=== PATIENT | female | born 1965 | race Caucasian/White ===

== ENCOUNTER 2017-06-13 16:04 | Observation (INO) | payer BC, OTHER ==
[2017-06-13] MEDS ORDERED: Sodium Chloride 0.9% 2.5 ML Syringe FLUSH PRN (16:10)
[2017-06-13] MEDS ORDERED: Sodium Chloride 0.9% 10 ML Syringe FLUSH PRN (16:10)
[2017-06-13] MEDS ORDERED: Aspirin 81 MG Tab.Chew PO ONE (16:10)
[2017-06-13] MEDS ORDERED: Nitroglycerin 0.4 MG Tab.SL SL PRN (16:10)
[2017-06-13] MEDS ORDERED: Ketorolac 30 MG/ML SDV IVPUSH ONE (16:23)
[2017-06-13] MEDS ORDERED: Sodium Chloride 0.9% 1,000 ML IV ONE ×2 (16:23→17:25)
--- NOTE | 2017-06-13 16:35 | EDM.PDOC ---
ED HPI GENERAL MEDICAL PROBLEM - General Chief Complaint: Chest Pain Stated Complaint: CHEST PAINS Time Seen by Provider: 06/13/17 16:09 Source of Information: Reports: Patient History Limitations: Reports: No Limitations - History of Present Illness INITIAL COMMENTS - FREE TEXT/NARRATIVE: History of present illness: []Patient was washing dishes around 3:15 when she got severe left-sided pain underneath her axilla radiating to her breast sharp and continuous. Patient states she got sweaty, dizzy and short of breath when it occurred. Review of systems: As per history of present illness and below otherwise all systems reviewed and negative. Past medical history: As per history of present illness and as reviewed below otherwise noncontributory. Surgical history: As per history of present illness and as reviewed below otherwise noncontributory. Social history: No reported history of drug or alcohol abuse. Family history: As per history of present illness and as reviewed below otherwise noncontributory. Physical exam: General: Well developed, well nourished in NAD HEENT: Atraumatic, normocephalic, pupils reactive, negative for conjunctival pallor or scleral icterus, mucous membranes moist, throat clear, neck supple, nontender, trachea midline. Lungs: Clear to auscultation, breath sounds equal bilaterally, chest nontender. Heart: S1S2, regular, negative for clicks, rubs, or JVD. Abdomen: Soft, nondistended, nontender. Negative for masses or hepatosplenomegaly. Negative for costovertebral tenderness. Pelvis: Stable nontender. Genitourinary: Deferred. Rectal: Deferred. Extremities: Atraumatic, negative for cords or calf pain. Neurovascular unremarkable. Neuro: Awake, alert, oriented. Cranial nerves II through XII unremarkable. Cerebellum unremarkable. Motor and sensory unremarkable throughout. Exam nonfocal. Diagnostics: []EKG showing no acute ischemic changes, is x-ray shows mild atelectasis, initial troponin is negative d-dimer was positive and a CT chest was negative for PE Therapeutics: []Aspirin and nitroglycerin pain meds were given Impression: []Chest pain likely musculoskeletal but will admit to rule out ND Plan: []Admit for observation for repeat troponins Definitive disposition and diagnosis as appropriate pending reevaluation and review of above. Left Chest Pain Score (Numeric/FACES): 9 - Related Data Allergies Allergy/AdvReac Type Severity Reaction Status Date / Time latex Allergy Rash Verified 06/13/17 23:28 nitrofurantoin Allergy Rash Verified 06/13/17 23:28 [From Macrodantin] Home Meds: Home Meds DULoxetine [Cymbalta] 60 mg PO BID 06/13/17 [History] Levothyroxine 75 mcg PO DAILY 06/13/17 [History] Omeprazole 20 mg PO DAILY 06/13/17 [History] traMADol [Ultram] 50 mg PO BID 06/13/17 [History] ED ROS GENERAL - Review of Systems Review Of Systems: See Below (See history of present illness) ED EXAM, GENERAL - Physical Exam Exam: See Below (See history of present illness) Course - Vital Signs Last Recorded V/S: Last Vital Signs Temp 36.2 C 06/14/17 08:00 Pulse 65 06/14/17 08:00 Resp 16 06/14/17 08:00 BP 81/46 L 06/14/17 08:00 Pulse Ox 97 06/14/17 08:00 - Orders/Labs/Meds Orders: Active Orders 24 hr Category Date Time Status Ang Chest [CT] Stat Exams 06/13/17 17:06 Taken Chest 1V Frontal [CR] Stat Exams 06/13/17 16:10 Taken Nitroglycerin [Nitrostat] Med 06/13/17 16:10 Active 0.4 mg SL Q5M PRN Sodium Chloride 0.9% [Saline Flush] Med 06/13/17 16:10 Active 10 ml FLUSH ASDIRECTED PRN Sodium Chloride 0.9% [Saline Flush] Med 06/13/17 16:10 Active 2.5 ml FLUSH ASDIRECTED PRN Saline Lock Insert [OM.PC] Stat Oth 06/13/17 16:09 Ordered Medication Orders Acetaminophen (Tylenol) 650 mg PO Q4H PRN PRN Reason: Pain (Mild 1-3)/fever Aspirin (Aspirin) 81 mg PO DAILY [facility] Last Admin: 06/14/17 08:11 Dose: 81 mg Bisacodyl (Dulcolax) 5 mg PO DAILY PRN PRN Reason: Constipation Duloxetine HCl (Cymbalta) 60 mg PO BID [facility] Last Admin: 06/14/17 08:10 Dose: 60 mg Admin: 06/13/17 20:55 Dose: 60 mg Levofloxacin (Levaquin) 500 mg PO Q24H [facility] Last Admin: 06/13/17 20:55 Dose: 500 mg Levothyroxine Sodium (Levothyroxine) 75 mcg PO DAILY@0700 [facility] Last Admin: 06/14/17 06:19 Dose: 75 mcg Morphine Sulfate (Morphine) 4 mg IVPUSH Q2H PRN PRN Reason: Pain Last Admin: 06/14/17 01:09 Dose: 4 mg Admin: 06/13/17 20:51 Dose: 4 mg Nitroglycerin (Nitrostat) 0.4 mg SL Q5M PRN PRN Reason: Chest Pain Omeprazole (Omeprazole) 20 mg PO ACBREAKFAST [facility] Ondansetron HCl (Zofran Odt) 4 mg PO Q4H PRN PRN Reason: nausea, able to take PO Last Admin: 06/13/17 20:56 Dose: 4 mg Sodium Chloride (Saline Flush) 10 ml FLUSH ASDIRECTED PRN PRN Reason: Keep Vein Open Last Admin: 06/13/17 16:20 Dose: 10 ml Sodium Chloride (Saline Flush) 2.5 ml FLUSH ASDIRECTED PRN PRN Reason: Keep Vein Open Last Admin: 06/13/17 16:20 Dose: 2.5 ml Temazepam (Restoril) 15 mg PO BEDTIME [facility] Last Admin: 06/13/17 20:56 Dose: Admin: 06/13/17 20:55 Dose: 15 mg Tramadol HCl (Ultram) 50 mg PO BID [facility] Last Admin: 06/14/17 08:11 Dose: 50 mg Admin: 06/13/17 20:55 Dose: 50 mg Trazodone HCl (Trazodone) 50 mg PO Q24H [facility] Last Admin: 06/13/17 20:55 Dose: 50 mg Labs: Laboratory Tests 06/13/17 06/13/17 06/13/17 Range/Units 16:07 16:12 16:12 WBC 14.00 H (4.0-11.0) K/uL RBC 5.24 (4.30-5.90) M/uL Hgb 16.2 H (12.0-16.0) g/dL Hct 47.9 H (36.0-46.0) % MCV 91.4 (80.0-98.0) fL MCH 30.9 (27.0-32.0) pg MCHC 33.8 (31.0-37.0) g/dL RDW Std Deviation 48.2 (28.0-62.0) fl RDW Coeff of Isaías 15 (11.0-15.0) % Plt Count 274 (150-400) K/uL MPV 11.10 (7.40-12.00) fL Add Manual Diff YES Neutrophils % (Manual) 52 (48.0-80.0) % Band Neutrophils % 7 % Lymphocytes % (Manual) 32 (16.0-40.0) % Monocytes % (Manual) 3 (0.0-15.0) % Eosinophils % (Manual) 6 (0.0-7.0) % Nucleated RBC % 0.0 /100WBC Absolute Seg Neuts 7.3 H (1.4-5.7) Band Neutrophils # 1.0 Lymphocytes # (Manual) 4.5 H (0.6-2.4) Monocytes # (Manual) 0.4 (0.0-0.8) Eosinophils # (Manual) 0.8 H (0.0-0.7) Nucleated RBCs # 0 K/uL D-Dimer, Quantitative 0.55 H (0.0-0.52) mg/LFEU Sodium 142 (136-146) mmol/L Potassium 3.7 (3.5-5.1) mmol/L Chloride 104 (98-110) mmol/L Carbon Dioxide 28 (21-31) mmol/L BUN 10 (6.0-23.0) mg/dL Creatinine 0.8 (0.6-1.5) mg/dL Est Cr Clr Drug Dosing 78.76 mL/min Estimated GFR (MDRD) > 60.0 ml/min Glucose 105 (60-110) mg/dL Calcium 9.8 (8.8-10.8) mg/dL Total Bilirubin 0.3 (0.1-1.5) mg/dL AST 15 (5-40) IU/L ALT 12 (8-54) IU/L Alkaline Phosphatase 117 (40-150) Troponin I < 0.10 (0.0-0.29) NG/ML Total Protein 8.0 (6.0-8.0) g/dL Albumin 4.1 (3.5-5.0) g/dL Globulin 3.9 H (2.0-3.5) g/dL Albumin/Globulin Ratio 1.1 L (1.3-2.8) Meds: Medications Generic Name Dose Route Start Last Admin Trade Name Freq PRN Reason Stop Dose Admin Acetaminophen 650 mg 06/13/17 20:25 Tylenol PO Q4H PRN Pain (Mild 1-3)/fever Aspirin 81 mg 06/14/17 09:00 06/14/17 08:11 Aspirin PO 81 mg DAILY [place] Administration Bisacodyl 5 mg 06/13/17 20:25 Dulcolax PO DAILY PRN Constipation Duloxetine HCl 60 mg 06/13/17 21:00 06/14/17 08:10 Cymbalta PO 60 mg BID [facility] Administration Levofloxacin 500 mg 06/13/17 20:00 06/13/17 20:55 Levaquin PO 500 mg Q24H [facility] Administration Levothyroxine Sodium 75 mcg 06/14/17 07:00 06/14/17 06:19 Levothyroxine PO 75 mcg DAILY@0700 [facility] Administration Morphine Sulfate 4 mg 06/13/17 20:14 06/14/17 01:09 Morphine IVPUSH 4 mg Q2H PRN Administration Pain Nitroglycerin 0.4 mg 06/13/17 16:10 Nitrostat SL Q5M PRN Chest Pain Omeprazole 20 mg 06/15/17 07:30 Omeprazole PO ACBREAKFAST [facility] Ondansetron HCl 4 mg 06/13/17 20:25 06/13/17 20:56 Zofran Odt PO 4 mg Q4H PRN Administration nausea, able to take PO Sodium Chloride 10 ml 06/13/17 16:10 06/13/17 16:20 Saline Flush FLUSH 10 ml ASDIRECTED PRN Administration Keep Vein Open Sodium Chloride 2.5 ml 06/13/17 16:10 06/13/17 16:20 Saline Flush FLUSH 2.5 ml ASDIRECTED PRN Administration Keep Vein Open Temazepam 15 mg 06/13/17 20:15 06/13/17 20:56 Restoril PO Not Given BEDTIME [facility] Tramadol HCl 50 mg 06/13/17 21:00 06/14/17 08:11 Ultram PO 50 mg BID [facility] Administration Trazodone HCl 50 mg 06/13/17 21:00 06/13/17 20:55 Trazodone PO 50 mg Q24H [place] Administration Discontinued Medications Generic Name Dose Route Start Last Admin Trade Name Louie TA Reason Stop Dose Admin Aspirin 324 mg 06/13/17 16:10 06/13/17 16:19 Aspirin PO 06/13/17 16:11 324 mg ONETIME ONE Administration Sodium Chloride 1,000 mls @ 999 mls/hr 06/13/17 16:23 06/13/17 16:24 Normal Saline IV 06/13/17 17:23 999 mls/hr .Bolus ONE Administration Sodium Chloride 1,000 mls @ 999 mls/hr 06/13/17 17:25 06/13/17 17:27 Normal Saline IV 06/13/17 18:25 999 mls/hr .Bolus ONE Administration Influenza Virus Vaccine 60 mcg 06/13/17 23:45 Fluarix Quad [id number] IM 06/13/17 23:46 .ONCE ONE Iopamidol 50 ml 06/13/17 18:12 06/13/17 18:12 Isovue Multipack-370 (76%) IVPUSH 06/13/17 18:13 50 ml ONETIME STA Administration Ketorolac Tromethamine 30 mg 06/13/17 16:23 06/13/17 16:26 Toradol IVPUSH 06/13/17 16:24 30 mg ONETIME ONE Administration Morphine Sulfate 2 mg 06/13/17 16:51 06/13/17 16:59 Morphine IVPUSH 06/13/17 16:52 2 mg ONETIME ONE Administration Nitroglycerin 0.4 mg 06/13/17 17:24 06/13/17 17:29 Nitrostat SL 06/13/17 17:25 0.4 mg ONETIME ONE Administration Omeprazole 20 mg 06/14/17 09:00 06/14/17 08:11 Omeprazole PO 20 mg DAILY [place] Administration Departure - Departure Time of Disposition: 19:45 Disposition: Admitted As Inpatient 68 Condition: Good Clinical Impression: Chest pain Qualifiers: Chest pain type: unspecified Qualified Code(s): R07.9 - Chest pain, unspecified - My Orders Last 24 Hours: My Active Orders 06/13/17 16:09 Saline Lock Insert [OM.PC] Stat 06/13/17 16:10 Chest 1V Frontal [CR] Stat Nitroglycerin [Nitrostat] 0.4 mg SL Q5M PRN Sodium Chloride 0.9% [Saline Flush] 10 ml FLUSH ASDIRECTED PRN Sodium Chloride 0.9% [Saline Flush] 2.5 ml FLUSH ASDIRECTED PRN 06/13/17 17:06 Ang Chest [CT] Stat - Assessment/Plan Last 24 Hours: My Active Orders 06/13/17 16:09 Saline Lock Insert [OM.PC] Stat 06/13/17 16:10 Chest 1V Frontal [CR] Stat Nitroglycerin [Nitrostat] 0.4 mg SL Q5M PRN Sodium Chloride 0.9% [Saline Flush] 10 ml FLUSH ASDIRECTED PRN Sodium Chloride 0.9% [Saline Flush] 2.5 ml FLUSH ASDIRECTED PRN 06/13/17 17:06 Ang Chest [CT] Stat
[2017-06-13 16:40] LABS: CHLORIDE,CL 104 mmol/L (98-110); SODIUM,NA 142 mmol/L (136-146)
[2017-06-13] MEDS ORDERED: Morphine 2 MG/ML Syringe IVPUSH ONE (16:51)
[2017-06-13] MEDS ORDERED: Nitroglycerin 0.4 MG Tab.SL SL ONE (17:24)
[2017-06-13] MEDS ORDERED: Iopamidol 755 MG/ML 500 ML Multipack Bottle IVPUSH STA (18:12)
[2017-06-13] MEDS ORDERED: Levofloxacin 500 MG Tab PO SCH (20:00)
--- NOTE | 2017-06-13 20:21 | PCM.HP ---
H&P History of Present Illness - General Date of Service: 06/13/17 Admit Problem/Dx: Admission Diagnosis/Problem Admission Diagnosis/Problem Chest pain Source of Information: Patient, Provider, RN - History of Present Illness Initial Comments - Free Text/Narative: She presented to the ED today with recent sudden onset left chest pain. She has a history of fibromyalgia. She has had a slight cough. no fever no bleeding she has only had four hours of sleep over the past several days. Her pain is improved compared to when she arrived in the ED. Left Chest Pain Score (Numeric/FACES): 6 - Related Data Allergies/Adverse Reactions: Allergies Allergy/AdvReac Type Severity Reaction Status Date / Time nitrofurantoin Allergy Rash Verified 06/13/17 16:18 [From Macrodantin] Home Medications: Home Meds DULoxetine [Cymbalta] 60 mg PO BID 06/13/17 [History] Levothyroxine 75 mcg PO DAILY 06/13/17 [History] Omeprazole 20 mg PO DAILY 06/13/17 [History] traMADol [Ultram] 50 mg PO BID 06/13/17 [History] Past Medical History Cardiovascular History: Denies: Afib, Aneurysm, Angina, Bypass, CAD, Cardiomyopathy, Heart Failure, High Cholesterol, Hypertension, HI, Pacemaker Respiratory History: Denies: COPD Gastrointestinal History: Denies: Cirrhosis Genitourinary History: Denies: Chronic Renal Insuffiency Musculoskeletal History: Reports: Fibromyalgia Neurological History: Denies: Alzheimers Disease, CVA, MS, Parkinson's, Seizure Endocrine/Metabolic History: Reports: Hypothyroidism. Denies: Diabetes, Type II Immunologic History: Denies: HIV, SLE, Solid Organ Transplant Oncologic (Cancer) History: Reports: None - Past Surgical History Female Surgical History: Reports: Hysterectomy Other Surgical History Comment: gastric sleeve about three years ago. she has undergone cervical spine fusion in the past. Social & Family History - Family History Family Medical History: Noncontributory - Tobacco Use Smoking Status *Q: Current Every Day Smoker Years of Tobacco use: 30 Packs/Tins Daily: 1 - Caffeine Use Caffeine Use: Reports: Coffee - Alcohol Use Alcohol Use Comment: she occasionally has a few drinks on the weekend. She does not drink alcohol daily. - Recreational Drug Use Recreational Drug Use: No H&P Review of Systems - Review of Systems: Review Of Systems: See Below General: Denies: Fever, Chills HEENT: Denies: Dysphasia Pulmonary: Reports: Cough. Denies: Shortness of Breath, Wheezing Cardiovascular: Reports: Chest Pain. Denies: Palpitations Gastrointestinal: Denies: Black Stool, Bloody Stool, Distension, Melena, Vomiting Genitourinary: Denies: Dysuria, Frequency, Pain Musculoskeletal: Reports: Other (chronic fibromyalgia pain) Skin: Denies: Cyanosis Neurological: Denies: Seizure Exam - Exam Exam: See Below - Vital Signs Vital Signs: Last Vital Signs Temp 97.5 F 06/13/17 19:32 Pulse 83 06/13/17 19:32 Resp 18 06/13/17 19:32 BP 107/63 06/13/17 19:32 Pulse Ox 100 06/13/17 19:32 Weight: 104.1 kg - Exam General: Alert, Oriented, Cooperative. No: Mild Distress HEENT: Conjunctiva Clear Neck: Supple Lungs: Clear to Auscultation, Normal Respiratory Effort Cardiovascular: Regular Rate, Regular Rhythm GI/Abdominal Exam: Soft, Non-Tender (Female) Exam: Deferred Rectal (Female) Exam: Deferred Extremities: No: Pedal Edema Neurological: Cranial Nerves Intact Psychiatric: Alert, Normal Affect (no ankle edema; breasts examined supine; no masses or tenderness; moderate anterior chest wall tenderness) - Patient Data Result Diagrams: 06/13/17 16:12 06/13/17 16:12 Gideon Results Last 24 hrs: EKG: NSR: no acute ST segment changes. *Q Meaningful Use (ADM) - VTE *Q VTE Criteria *Q: - Stroke *Q Stroke Criteria *Q: - AMI *Q AMI Criteria *Q: - Problem List (1) Chest wall pain SNOMED Code(s): 192404914 ICD Code: R07.89 - OTHER CHEST PAIN Status: Acute Current Visit: Yes (2) Insomnia SNOMED Code(s): 506692942 ICD Code: G47.00 - INSOMNIA, UNSPECIFIED Status: Acute Current Visit: Yes (3) Fibromyalgia SNOMED Code(s): 102923192 ICD Code: M79.7 - FIBROMYALGIA Status: Acute Current Visit: Yes Problem List Initiated/Reviewed/Updated: Yes Orders Last 24hrs: Active Orders 24 hr Category Date Time Status Aspirin Med 06/14/17 09:00 Ordered 81 mg PO DAILY DULoxetine [Cymbalta] Med 06/13/17 21:00 Ordered 60 mg PO BID Levofloxacin [Levaquin] Med 06/13/17 20:15 Ordered 500 mg PO Q24H Levothyroxine Med 06/14/17 09:00 Ordered 75 mcg PO DAILY Morphine Med 06/13/17 20:14 Ordered 4 mg IVPUSH Q2H PRN Omeprazole Med 06/14/17 09:00 Ordered 20 mg PO DAILY Temazepam [Restoril] Med 06/13/17 20:15 Ordered 15 mg PO BEDTIME traMADol [Ultram] Med 06/13/17 21:00 Ordered 50 mg PO BID traZODone Med 06/13/17 21:00 Ordered 50 mg PO Q24H Medication Orders Aspirin (Aspirin) 81 mg PO DAILY [place] Duloxetine HCl (Cymbalta) 60 mg PO BID [facility] Levothyroxine Sodium (Levothyroxine) 75 mcg PO DAILY [place] Morphine Sulfate (Morphine) 4 mg IVPUSH Q2H PRN PRN Reason: Pain Nitroglycerin (Nitrostat) 0.4 mg SL Q5M PRN PRN Reason: Chest Pain Omeprazole (Omeprazole) 20 mg PO DAILY [facility] Sodium Chloride (Saline Flush) 10 ml FLUSH ASDIRECTED PRN PRN Reason: Keep Vein Open Last Admin: 06/13/17 16:20 Dose: 10 ml Sodium Chloride (Saline Flush) 2.5 ml FLUSH ASDIRECTED PRN PRN Reason: Keep Vein Open Last Admin: 06/13/17 16:20 Dose: 2.5 ml Temazepam (Restoril) 15 mg PO BEDTIME [place] Tramadol HCl (Ultram) 50 mg PO BID [place] Trazodone HCl (Trazodone) 50 mg PO Q24H [place] Assessment/Plan Comment:: Will add trazodone and restoril serial troponins Likely discharge in am. Bernardino Melara MD
[2017-06-13] MEDS ORDERED: Bisacodyl 5 MG Tab PO PRN (20:25)
[2017-06-13] MEDS ORDERED: Acetaminophen 325 MG Tab PO PRN (20:25)
[2017-06-13] MEDS ORDERED: Ondansetron 4 MG Tab.DIS PO PRN (20:25)
[2017-06-13] MEDS: Morphine 4 MG/ML Syringe IVPUSH PRN (20:51)
[2017-06-13] MEDS: Temazepam 15 MG Cap PO SCH ×2 (20:55→20:56)
[2017-06-13] MEDS: traMADol 50 MG Tab PO SCH (20:55)
[2017-06-13] MEDS: DULoxetine 60 MG Cap PO SCH (20:55)
[2017-06-13] MEDS ORDERED: traZODone 50 MG Tab PO SCH (21:00)
[2017-06-13] MEDS ORDERED: FLU Vacc QS 2017-18 (36mos UP)/PF 60 MCG/0.5 ML Syringe IM ONE (23:45)
[2017-06-14] MEDS: Morphine 4 MG/ML Syringe IVPUSH PRN (01:09)
[2017-06-14] MEDS ORDERED: Levothyroxine 75 MCG Tab PO SCH (07:00)
[2017-06-14] MEDS: DULoxetine 60 MG Cap PO SCH (08:10)
[2017-06-14] MEDS: traMADol 50 MG Tab PO SCH (08:11)
[2017-06-14] MEDS ORDERED: Omeprazole 20 MG Cap.CR PO SCH (09:00)
[2017-06-14] MEDS ORDERED: Aspirin 81 MG Tab.Chew PO SCH (09:00)
--- NOTE | 2017-06-14 10:52 | PCM.DCSUM1 ---
Discharge Summary - Hospital Course Brief History: This 52 year old female with pmh of fibromyalgia presented to the ED with complaints of L sided chest pain. she reported was washing dishes around 3:15 am when she got severe left-sided pain underneath her axilla radiating to her breast sharp and continuous. Patient states she got sweaty, dizzy and short of breath when it occurred. This was unusual to her typical chronic pain and felt she should be evaluated. She reports she does smoke 1 ppd for the past 30 years, drinks coffee and at least 1 energy drink daily and uses alcohol socially, but not on a daily basis. Initial troponin in ED negative. EKG NSR with no acute ST segment changes. She was admitted for chest pain ACS rule out. - Discharge Data Discharge Date: 06/14/17 Discharge Disposition: Home, Self-Care 01 Condition: Good - Discharge Diagnosis/Problem(s) (1) Chest pain SNOMED Code(s): 63176876 ICD Code: R07.9 - CHEST PAIN, UNSPECIFIED Status: Acute Qualifiers: Chest pain type: unspecified Qualified Code(s): R07.9 - Chest pain, unspecified - Patient Instructions Diet: Heart Healthy Diet Activity: As Tolerated, No Strenuous Activities Driving: May Drive Today Showering/Bathing: May Shower Notify Provider of: Fever, Increased Pain, Swelling and Redness, Drainage, Nausea and/or Vomiting - Discharge Plan Home Medications: Home Meds DULoxetine [Cymbalta] 60 mg PO BID 06/13/17 [History] Levothyroxine 75 mcg PO DAILY 06/13/17 [History] Omeprazole 20 mg PO DAILY 06/13/17 [History] traMADol [Ultram] 50 mg PO BID 06/13/17 [History] Aspirin 81 mg PO DAILY tab.chew 06/14/17 [Rx] Patient Handouts: Exercise Stress Echocardiogram, [id number], Nonspecific Chest Pain, [id number] Referrals: Anna Cohn MD [Physician] - 06/26/17 1:00 pm - Discharge Summary/Plan Comment DC Time >30 min.: No Discharge Summary/Plan Comment: Discharge Diagnoses: Chest pain- ACS ruled out likely musculoskeletal Fibromyalgia Alyse was admitted and ACS ruled out. All troponins returned negative. She continues to have some tenderness to L sided chest, but this hurts to palpations of chest and reproduces pain. Telemetry remained normal overnight as well. Lipid panel revelaed HDL 29, LDL 167, A1c 5.6 She was encouraged to continue with healthy lifestyle choices, including more plant based diet and to quit smoking. She was also encouraged to stop energy drink intake as well. She will be sent home today with no changes to medications. She will be set up with outpatient stress test to further evaluate her heart. She will also be set up with PCP to establish care here in [place]. She is to return to ED or clinic if concerns should arise. - General Info Date of Service: 06/14/17 Admission Dx/Problem (Free Text: Admission Diagnosis/Problem Admission Diagnosis/Problem Chest pain Subjective Update: Feeling ok this am, still having some tenderness to L chest, but better than yesterday. No dizziness or headache. No SOB or palpitations. - Review of Systems General: Reports: No Symptoms. Denies: Weakness, Fatigue HEENT: Reports: No Symptoms. Denies: Headaches, Sore Throat Pulmonary: Reports: No Symptoms. Denies: Shortness of Breath, Cough, Sputum Cardiovascular: Reports: No Symptoms. Denies: Chest Pain, Edema Gastrointestinal: Reports: No Symptoms. Denies: Abdominal Pain, Nausea, Vomiting Neurological: Reports: No Symptoms Psychiatric: Reports: No Symptoms - Patient Data Vitals - Most Recent: Last Vital Signs Temp 97.2 F 06/14/17 08:00 Pulse 65 06/14/17 08:00 Resp 16 06/14/17 08:00 BP 81/46 L 06/14/17 08:00 Pulse Ox 97 06/14/17 08:00 Weight - Most Recent: 104.525 kg I&O - Last 24 hours: Intake & Output 06/13/17 06/14/17 06/14/17 22:59 06:59 14:59 Intake Total 850 Output Total 550 Balance 300 Lab Results - Last 24 hrs: Laboratory Results - last 24 hr 06/13/17 06/14/17 06/14/17 Range/Units 22:53 04:48 04:48 WBC (4.0-11.0) K/uL RBC (4.30-5.90) M/uL Hgb (12.0-16.0) g/dL Hct (36.0-46.0) % MCV (80.0-98.0) fL MCH (27.0-32.0) pg MCHC (31.0-37.0) g/dL RDW Std Deviation (28.0-62.0) fl RDW Coeff of Isaías (11.0-15.0) % Plt Count (150-400) K/uL MPV (7.40-12.00) fL Add Manual Diff Neutrophils % (Manual) (48.0-80.0) % Band Neutrophils % % Lymphocytes % (Manual) (16.0-40.0) % Monocytes % (Manual) (0.0-15.0) % Eosinophils % (Manual) (0.0-7.0) % Nucleated RBC % /100WBC Absolute Seg Neuts (1.4-5.7) Band Neutrophils # Lymphocytes # (Manual) (0.6-2.4) Monocytes # (Manual) (0.0-0.8) Eosinophils # (Manual) (0.0-0.7) Nucleated RBCs # K/uL Hemoglobin A1c 5.6 (0.0-6.0) % Magnesium (1.5-2.3) mEq/L Troponin I < 0.10 (0.0-0.29) NG/ML Triglycerides 147 (10-190) mg/dL Cholesterol 222 (131-240) mg/dL LDL Cholesterol, Calc 163 (60-180) mg/dL VLDL Cholesterol 29 (5-55) mg/dL HDL Cholesterol 30 L (40-80) mg/dL Cholesterol/HDL Ratio 7.4 H (3.3-6.0) 06/14/17 06/14/17 06/14/17 Range/Units 04:58 04:58 04:58 WBC 10.96 (4.0-11.0) K/uL RBC 4.23 L (4.30-5.90) M/uL Hgb 12.7 (12.0-16.0) g/dL Hct 39.7 (36.0-46.0) % MCV 93.9 (80.0-98.0) fL MCH 30.0 (27.0-32.0) pg MCHC 32.0 (31.0-37.0) g/dL RDW Std Deviation 49.7 (28.0-62.0) fl RDW Coeff of Isaías 15 (11.0-15.0) % Plt Count 228 (150-400) K/uL MPV 11.20 (7.40-12.00) fL Add Manual Diff YES Neutrophils % (Manual) 58 (48.0-80.0) % Band Neutrophils % 1 % Lymphocytes % (Manual) 34 (16.0-40.0) % Monocytes % (Manual) 4 (0.0-15.0) % Eosinophils % (Manual) 3 (0.0-7.0) % Nucleated RBC % 0.0 /100WBC Absolute Seg Neuts 6.4 H (1.4-5.7) Band Neutrophils # 0.1 Lymphocytes # (Manual) 3.7 H (0.6-2.4) Monocytes # (Manual) 0.4 (0.0-0.8) Eosinophils # (Manual) 0.3 (0.0-0.7) Nucleated RBCs # 0 K/uL Hemoglobin A1c (0.0-6.0) % Magnesium 1.6 (1.5-2.3) mEq/L Troponin I < 0.10 (0.0-0.29) NG/ML Triglycerides (10-190) mg/dL Cholesterol (131-240) mg/dL LDL Cholesterol, Calc (60-180) mg/dL VLDL Cholesterol (5-55) mg/dL HDL Cholesterol (40-80) mg/dL Cholesterol/HDL Ratio (3.3-6.0) Med Orders - Current: Current Medications Acetaminophen (Tylenol) 650 mg PO Q4H PRN PRN Reason: Pain (Mild 1-3)/fever Aspirin (Aspirin) 81 mg PO DAILY [facility] Last Admin: 06/14/17 08:11 Dose: 81 mg Bisacodyl (Dulcolax) 5 mg PO DAILY PRN PRN Reason: Constipation Duloxetine HCl (Cymbalta) 60 mg PO BID [facility] Last Admin: 06/14/17 08:10 Dose: 60 mg Levofloxacin (Levaquin) 500 mg PO Q24H [facility] Last Admin: 06/13/17 20:55 Dose: 500 mg Levothyroxine Sodium (Levothyroxine) 75 mcg PO DAILY@0700 [facility] Last Admin: 06/14/17 06:19 Dose: 75 mcg Morphine Sulfate (Morphine) 4 mg IVPUSH Q2H PRN PRN Reason: Pain Last Admin: 06/14/17 01:09 Dose: 4 mg Nitroglycerin (Nitrostat) 0.4 mg SL Q5M PRN PRN Reason: Chest Pain Omeprazole (Omeprazole) 20 mg PO ACBREAKFAST [facility] Ondansetron HCl (Zofran Odt) 4 mg PO Q4H PRN PRN Reason: nausea, able to take PO Last Admin: 06/13/17 20:56 Dose: 4 mg Sodium Chloride (Saline Flush) 10 ml FLUSH ASDIRECTED PRN PRN Reason: Keep Vein Open Last Admin: 06/13/17 16:20 Dose: 10 ml Sodium Chloride (Saline Flush) 2.5 ml FLUSH ASDIRECTED PRN PRN Reason: Keep Vein Open Last Admin: 06/13/17 16:20 Dose: 2.5 ml Temazepam (Restoril) 15 mg PO BEDTIME [facility] Last Admin: 06/13/17 20:56 Dose: Not Given Tramadol HCl (Ultram) 50 mg PO BID [facility] Last Admin: 06/14/17 08:11 Dose: 50 mg Trazodone HCl (Trazodone) 50 mg PO Q24H [facility] Last Admin: 06/13/17 20:55 Dose: 50 mg Discontinued Medications Aspirin (Aspirin) 324 mg PO ONETIME ONE Stop: 06/13/17 16:11 Last Admin: 06/13/17 16:19 Dose: 324 mg Sodium Chloride (Normal Saline) 1,000 mls @ 999 mls/hr IV .Bolus ONE Stop: 06/13/17 17:23 Last Admin: 06/13/17 16:24 Dose: 999 mls/hr Sodium Chloride (Normal Saline) 1,000 mls @ 999 mls/hr IV .Bolus ONE Stop: 06/13/17 18:25 Last Admin: 06/13/17 17:27 Dose: 999 mls/hr Influenza Virus Vaccine (Fluarix Quad [id number]) 60 mcg IM .ONCE ONE Stop: 06/13/17 23:46 Last Admin: 06/14/17 09:33 Dose: 60 mcg Iopamidol (Isovue Multipack-370 (76%)) 50 ml IVPUSH ONETIME STA Stop: 06/13/17 18:13 Last Admin: 06/13/17 18:12 Dose: 50 ml Ketorolac Tromethamine (Toradol) 30 mg IVPUSH ONETIME ONE Stop: 06/13/17 16:24 Last Admin: 06/13/17 16:26 Dose: 30 mg Morphine Sulfate (Morphine) 2 mg IVPUSH ONETIME ONE Stop: 06/13/17 16:52 Last Admin: 06/13/17 16:59 Dose: 2 mg Nitroglycerin (Nitrostat) 0.4 mg SL ONETIME ONE Stop: 06/13/17 17:25 Last Admin: 06/13/17 17:29 Dose: 0.4 mg Omeprazole (Omeprazole) 20 mg PO DAILY [place] Last Admin: 06/14/17 08:11 Dose: 20 mg - Exam General: Reports: Alert, Oriented, Cooperative, No Acute Distress Neck: Reports: Supple Lungs: Reports: Clear to Auscultation, Normal Respiratory Effort Cardiovascular: Reports: Regular Rate, Regular Rhythm, Other (chest pain to palpation of anterior chest wall. ) GI/Abdominal Exam: Normal Bowel Sounds, Soft, Non-Tender, No Organomegaly, No Distention, No Abnormal Bruit, No Mass, Pelvis Stable Wound/Incisions: Reports: Healing Well Neurological: Reports: No New Focal Deficit Psy/Mental Status: Reports: Alert, Normal Affect, Normal Mood *Q Meaningful Use (DIS) - VTE *Q VTE Criteria *Q: - Stroke *Q Stroke Criteria *Q: - AMI *Q AMI Criteria *Q:
--- NOTE | 2017-06-14 13:41 | CR ---
EXAM DATE: 06/13/17 PATIENT'S AGE: 52 Patient: GÓMEZ BARCENAS Facility: [place], [place] Site . Site : 1965 Study: XRay Chest [id number] 4:56:15 PM Ordering Physician: Vidal Almaguer Final Report: INDICATIONS: Chest pain for the past 3 hours. Shortness of breath. TECHNIQUE: Chest 1 view portable. COMPARISON: None FINDINGS: No pneumothorax or pleural effusion. Bilateral perihilar linear scarring or atelectasis. The lungs are otherwise clear. Cardiac and mediastinal contours are within normal limits. Upper abdomen and osseous structures show no acute abnormality. Cervical fusion changes. IMPRESSION: No evidence of acute cardiopulmonary disease. Dictated by Arsen Romero MD @ 06/13/2017 5:31:37 PM Dictated by: Arsen Romero MD @ 06/13/2017 17:31:44 (Electronic Signature) Report Signed by Proxy. [facility]
--- NOTE | 2017-06-14 13:42 | CT ---
EXAM DATE: 06/13/17 PATIENT'S AGE: 52 Patient: GÓMEZ BARCENAS Facility: [place], [place] : 1965 Study: CT Chest Angio [id number] 6:31:39 PM Ordering Physician: LOGAN Final Report: INDICATION: Left-sided chest pain. Short of breath. TECHNIQUE: Contiguous axial images were acquired through the chest after the intravenous administration of 50 mL of Isovue. Image acquisition was timed for maximum pulmonary arterial enhancement. Sagittal and coronal reconstructions. COMPARISON: None. FINDINGS: The pulmonary arteries are well opacified with intravascular contrast. No filling defects to suggest an acute pulmonary embolus. Heart size is within normal limits. No pericardial effusion. Normal caliber thoracic aorta. No lymphadenopathy by size criteria. Low lung volumes with mild bibasilar atelectasis. No airspace opacities to suggest pneumonia. No evidence of overt edema. No suspicious pulmonary nodules. No pleural fluid. Small low-density lesions seen in the liver are presumably related to cysts in a patient without a known primary. Status post gastric surgery. No acute bony abnormality. IMPRESSION: 1. No CT evidence of an acute pulmonary embolus. 2. No signs of acute thoracic disease. Dictated by Valentin Breen MD @ 06/13/2017 7:21:26 PM Dictated by: Valentin Breen MD @ 06/13/2017 19:21:44 (Electronic Signature) Report Signed by Proxy. [facility]
[2017-06-15] MEDS ORDERED: Omeprazole 20 MG Cap.CR PO SCH (07:30)
== END 2017-06-14 11:50 | disposition home or self-care (01) ==
LOC: MW.ED 16:04 → MW.MS 19:09
PROVIDERS: ADMIT Family Medicine; ATTEND Family Medicine
DX: R07.89 Other chest pain (principal); M79.7 Fibromyalgia; G47.00 Insomnia, unspecified; E03.9 Hypothyroidism, unspecified; F17.210 Nicotine dependence, cigarettes, uncomplicated; Z79.899 Other long term (current) drug therapy; Z88.1 Allergy status to other antibiotic agents; Z98.1 Arthrodesis status; Z98.84 Bariatric surgery status; Z90.710 Acquired absence of both cervix and uterus
CPT/HCPCS: 36415; 71010; 71275; 80053; 80061; 83036; 83735; 84484; 85025; 85379; 93005; 96361; 96374; 96375; 96376; 99285; A9270; G0008; G0378; J1885; J2270; J7040; Q9967; 90686; 99283

== ENCOUNTER 2018-10-15 11:57 | Emergency (ER) | payer OTHER ==
--- NOTE | 2018-10-15 12:14 | EDM.PDOC ---
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 Past medical history: As per history of present illness and as reviewed below otherwise noncontributory. Surgical history: As per history of present illness and as reviewed below otherwise noncontributory. Social history: No reported history of drug or alcohol abuse. Family history: As per history of present illness and as reviewed below otherwise noncontributory. Physical exam: HEENT: Atraumatic, normocephalic, pupils reactive, negative for conjunctival pallor or scleral icterus, mucous membranes moist, throat clear, neck supple, nontender, trachea midline. Lungs: Clear to auscultation, breath sounds equal bilaterally, chest nontender. Heart: S1S2, regular, negative for clicks, rubs, or JVD. Abdomen: Soft, nondistended, nontender. Negative for masses or hepatosplenomegaly. Negative for costovertebral tenderness. Pelvis: Stable nontender. Genitourinary: Deferred. Rectal: Deferred. Extremities: Atraumatic, negative for cords or calf pain. Neurovascular unremarkable. Limited right knee exam due to pain limb is neurovascularly intact , left hip and ankle are unaffected knee is tender anteriorly with bruising however tendon and ligament structures appear intact neurovascular is intact Neuro: Awake, alert, oriented. Cranial nerves II through XII unremarkable. Cerebellum unremarkable. Motor and sensory unremarkable throughout. Exam nonfocal. Diagnostics: [Bilateral knee plain films Pelvis with right hip] Therapeutics: [Toradol 60 IM ] Rest ice ibuprofen Laser crutches nonweightbearing Follow-up with or follow Impression: [Fall Left knee injury/contusion Right knee injury Right hip pain/injury Definitive disposition and diagnosis as appropriate pending reevaluation and review of above. bilateral knee, Right Hip Pain Score (Numeric/FACES): 10 - Related Data Allergies Allergy/AdvReac Type Severity Reaction Status Date / Time latex Allergy Rash Verified 10/15/18 12:06 nitrofurantoin Allergy Rash Verified 10/15/18 12:06 [From Macrodantin] Home Meds: Home Meds Fexofenadine HCl [Anjali Allergy] 1 tab PO DAILY 10/15/18 [History] Past Medical History Musculoskeletal History: Reports: Fibromyalgia Endocrine/Metabolic History: Reports: Hypothyroidism Oncologic (Cancer) History: Reports: None - Past Surgical History GI Surgical History: Reports: Appendectomy, Bariatric Procedure, Cholecystectomy Other GI Surgeries/Procedures: gastric sleeve Female Surgical History: Reports: Hysterectomy Musculoskeletal Surgical History: Reports: Arthroscopic Knee, Shoulder Surgery, Other (See Below) Other Musculoskeletal Surgeries/Procedures:: Plate in Neck Social & Family History - Family History Family Medical History: Noncontributory - Tobacco Use Smoking Status *Q: Current Every Day Smoker Years of Tobacco use: 30 Packs/Tins Daily: 1.5 - Caffeine Use Caffeine Use: Reports: Coffee, Energy Drinks - Recreational Drug Use Recreational Drug Use: No Review of Systems - Review of Systems Review Of Systems: See Below ED EXAM, GENERAL - Physical Exam Exam: See Below Course - Vital Signs Last Recorded V/S: Last Vital Signs Temp 97.8 F 10/15/18 12:04 Pulse 90 10/15/18 12:04 Resp 20 10/15/18 12:04 BP 112/77 10/15/18 12:04 Pulse Ox 99 10/15/18 12:04 - Orders/Labs/Meds Meds: Medications Discontinued Medications Generic Name Dose Route Start Last Admin Trade Name Freq PRN Reason Stop Dose Admin Ketorolac Tromethamine 60 mg 10/15/18 12:14 10/15/18 12:45 Toradol IM 10/15/18 12:15 60 mg ONETIME ONE Administration Departure - Departure Time of Disposition: 14:44 Disposition: Home, Self-Care 01 Condition: Good Clinical Impression: Right knee injury, Left knee pain, Injury of right hip - Discharge Information Referrals: PCP,None [Primary Care Provider] - Forms: ED Department Discharge Additional Instructions: Rest Ice 20 minute intervals 3 times daily as needed Ibuprofen 400 mg 3 times daily 7-10 days imMobilizer crutches nonweightbearing Follow-up with orthopedist, call phone number below to schedule appropriate follow-up [facility] [address], [address] [place] [address] my orthopedic The following information is given to patients seen in the emergency department who are being discharged to home. This information is to outline your options for follow-up care. We provide all patients seen in our emergency department with a follow-up referral. The need for follow-up, as well as the timing and circumstances, are variable depending upon the specifics of your emergency department visit. If you don't have a primary care physician on staff, we will provide you with a referral. We always advise you to contact your personal physician following an emergency department visit to inform them of the circumstance of the visit and for follow-up with them and/or the need for any referrals to a consulting specialist. The emergency department will also refer you to a specialist when appropriate. This referral assures that you have the opportunity for follow-up care with a specialist. All of these measure are taken in an effort to provide you with optimal care, which includes your follow-up. Under all circumstances we always encourage you to contact your private physician who remains a resource for coordinating your care. When calling for follow-up care, please make the office aware that this follow-up is from your recent emergency room visit. If for any reason you are refused follow-up, please contact the [facility] emergency department at and asked to speak to the emergency department charge nurse.
[2018-10-15] MEDS: Ketorolac 60 MG/2 ML SDV IM ONE (12:45)
--- NOTE | 2018-10-15 13:56 | CR ---
Indication: Fall with pain Technique: Frontal view pelvis, two view right hip Comparison: None Findings: Bones: Alignment is normal. No fractures or bone lesions. Joint spaces: Unremarkable. Soft tissues: Unremarkable. Impression: Negative. Dictated by Mary Hubbard MD @ Oct 15 2018 1:54PM Signed by Dr. Mary Hubbard @ Oct 15 2018 1:54PM
--- NOTE | 2018-10-15 14:00 | CR ---
Indication: Fall, pain Technique: Three views bilateral knees Comparison: None Findings: Bones: Alignment is normal. No fractures or bone lesions. Joint spaces: Unremarkable. Soft tissues: Unremarkable. Impression: Negative. Dictated by Mary Hubbard MD @ Oct 15 2018 1:57PM Signed by Dr. Mary Hubbard @ Oct 15 2018 1:57PM
== END 2018-10-15 15:05 | disposition home or self-care (01) ==
LOC: MW.ED 11:57
DX: S80.02XA Contusion of left knee, initial encounter (principal); S89.91XA Unspecified injury of right lower leg, initial encounter; S79.911A Unspecified injury of right hip, initial encounter; Z91.040 Latex allergy status; Z88.8 Allergy status to other drugs, medicaments and biological substances; W19.XXXA Unspecified fall, initial encounter
CPT/HCPCS: 73502; 73562; 96372; 99283; J1885

== ENCOUNTER 2019-01-21 10:17 | Day surgery (SDC) | payer OTHER ==
[~2019-01-21 10:17] MED LIST: Acetaminophen/HYDROcodone 325-5 MG Tab PO PRN; Lactated Ringers 1,000 ML IV SCH; ceFAZolin 2 GM in Premix Bag 1 BAG IV SCH
--- NOTE | 2019-01-21 12:42 | PCM.PREANE ---
Preanesthetic Assessment - Anesthesia/Transfusion/Family Hx Anesthesia History: Prior Anesthesia Without Reaction Family History of Anesthesia Reaction: No Transfusion History: No Prior Transfusion(s) Intubation History: Unknown - Review of Systems General: No Symptoms Pulmonary: No Symptoms Cardiovascular: No Symptoms Gastrointestinal: No Symptoms Neurological: No Symptoms Other: Reports: None - Physical Assessment NPO Status Date: 01/20/19 NPO Status Time: 23:45 O2 Sat by Pulse Oximetry: 95 Respiratory Rate: 16 Vital Signs: Last Vital Signs Temp 36.7 C 01/21/19 11:54 Pulse 78 01/21/19 11:54 Resp 16 01/21/19 11:54 BP 105/65 01/21/19 11:54 Pulse Ox 95 01/21/19 11:54 Height: 5 ft 6 in Weight: 90.718 kg ASA Class: 2 Mental Status: Alert & Oriented x3 Airway Class: Mallampati = 2 Dentition: Reports: Dentures (upper and lower) Thyro-Mental Finger Breadths: 3 Mouth Opening Finger Breadths: 3 ROM/Head Extension: Limited/Partial Lungs: Clear to Auscultation, Normal Respiratory Effort Cardiovascular: Regular Rate, Regular Rhythm - Allergies Allergies/Adverse Reactions: Allergies Allergy/AdvReac Type Severity Reaction Status Date / Time adhesive tape Allergy Blisters Verified 01/16/19 11:03 latex Allergy Rash Verified 01/16/19 09:48 nitrofurantoin Allergy Rash Verified 01/16/19 09:48 [From Macrodantin] - Blood Blood Available: No - Anesthesia Plan Pre-Op Medication Ordered: None - Acknowledgements Anesthesia Type Planned: General Anesthesia Pt an Appropriate Candidate for the Planned Anesthesia: Yes Alternatives and Risks of Anesthesia Discussed w Pt/Guardian: Yes Pt/Guardian Understands and Agrees with Anesthesia Plan: Yes PreAnesthesia Questionnaire HEENT History: Reports: Other (See Below) Other HEENT History: top and bottom denture Cardiovascular History: Reports: None Respiratory History: Reports: Other (See Below) Other Respiratory History: states possible sleep apnea but not diagnosed Gastrointestinal History: Reports: GERD Genitourinary History: Reports: None 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: Musculoskeletal History: Reports: Fracture, Fibromyalgia Other Musculoskeletal History: hx fx arm Neurological History: Reports: None Psychiatric History: Reports: Anxiety, Depression Endocrine/Metabolic History: Reports: Hypoparathyroidism, Obesity/BMI 30+ Other Endocrine/Metabolic History: states low thyroid but not on meds Hematologic History: Reports: None Immunologic History: Reports: None Oncologic (Cancer) History: Reports: None Dermatologic History: Reports: None - Past Surgical History Head Surgeries/Procedures: Reports: None HEENT Surgical History: Reports: None Cardiovascular Surgical History: Reports: None Respiratory Surgical History: Reports: None GI Surgical History: Reports: Appendectomy, Bariatric Procedure, Cholecystectomy Other GI Surgeries/Procedures: gastric sleeve Female Surgical History: Reports: Hysterectomy Endocrine Surgical History: Reports: Other (See Below) Other Endocrine Surgeries/Procedures: neck tumor removal Neurological Surgical History: Reports: C-Spine Other Neurological Surgeries/Procedures: C6-C7 fusion Musculoskeletal Surgical History: Reports: Arthroscopic Knee (right), Shoulder Surgery (left), Other (See Below) Other Musculoskeletal Surgeries/Procedures:: Plate in Neck Oncologic Surgical History: Reports: None Dermatological Surgical History: Reports: None - SUBSTANCE USE Smoking Status *Q: Current Every Day Smoker (1 08/20 ppd) Tobacco Use Within Last Twelve Months: Cigarettes Recreational Drug Use History: No - HOME MEDS Home Medications: Home Meds Fexofenadine HCl [Anjali Allergy] 1 tab PO DAILY 10/15/18 [History] Diazepam [Valium] 1 tab PO ASDIRECTED PRN 01/16/19 [History] Famotidine [Acid Packing Line Worker] 20 mg PO DAILY PRN 01/16/19 [History] - CURRENT (IN HOUSE) MEDS Current Meds: Current Medications Hydrocodone Bitart/Acetaminophen ([place] 325-5 Mg) 1 - 2 tab PO Q4H PRN PRN Reason: Pain Cefazolin Sodium/Dextrose 2 gm (/ Premix) 50 mls @ 100 mls/hr IV ONCALL [place] Lactated Ringer's (Ringers, Lactated) 1,000 mls @ 100 mls/hr IV ASDIRECTED [place]
[2019-01-21] MEDS ORDERED: fentaNYL 100 MCG/2 ML SDV ONE (13:02)
[2019-01-21] MEDS ORDERED: Midazolam 1 MG/ML 2 ML SDV ONE (13:02)
[2019-01-21] MEDS ORDERED: Propofol 200 MG/20 ML SDV ONE (13:02)
[2019-01-21] MEDS ORDERED: Ondansetron 4 MG/2 ML SDV ONE (13:02)
[2019-01-21] MEDS ORDERED: Ketorolac 30 MG/ML SDV ONE (14:06)
[2019-01-21] MEDS ORDERED: Lidocaine 1% 20 ML MDV ONE (14:12)
[2019-01-21] MEDS ORDERED: Sodium Chloride 0.9% 20 ML ONE (14:17)
[2019-01-21] MEDS ORDERED: ceFAZolin 1 GM Vial ONE (14:17)
--- NOTE | 2019-01-21 15:07 | PCM.OPNOTE ---
- General Post-Op/Procedure Note Date of Surgery/Procedure: 01/21/19 Operative Procedure(s): R knee scope with PLM Post-Op Diagnosis: DJD R knee, R knee lat meniscus tear Primary Surgeon: Delicia Young Pipe Recovery Specialist: Rosalina Mancilla in mLs: 5 Condition: Good Free Text/Narrative:: tt= 16 min #[id number]
--- NOTE | 2019-01-21 19:26 | OR ---
SURGEON: Delicia Young MD DATE OF PROCEDURE: 01/21/2019 PREOPERATIVE DIAGNOSIS: Right knee lateral meniscus tear. POSTOPERATIVE DIAGNOSES: 1. Right knee lateral meniscus tear. 2. Degenerative joint disease, right knee. PROCEDURE PERFORMED: Right knee arthroscopy with partial lateral meniscectomy. PRIMARY SURGEON: Delicia Young MD. HEALTH ASSESSMENT AND TREATMENT TEACHER: Rosalina Mancilla PA-C. ANESTHESIA: General. ESTIMATED BLOOD LOSS: 5 mL. TOURNIQUET TIME: 16 minutes. COMPLICATIONS: None. DVT PROPHYLAXIS: Not indicated. IMPLANTS USED: None. BRIEF HISTORY: Alyse is a 53-year-old female, who has had complaint of progressive right knee pain. She has failed conservative treatment. Due to her lack of response to conservative treatment, I did recommend surgical intervention. The risks and goals of procedure were discussed with the patient and were documented preoperatively. She agreed to proceed. DESCRIPTION OF PROCEDURE: Patient was properly identified and brought to the operating room. She was transferred from the OR cart and placed on the operating table in supine position. General anesthesia was administered. After adequate anesthesia was obtained, a well-padded tourniquet was applied to the right lower extremity. The right lower extremity was then prepped in standard fashion using ChloraPrep solution. It was then sterilely draped. A time-out was performed to ensure correct site and procedure. Preoperative antibiotics were given. The surgical site had been marked preoperatively. An Esmarch was used to exsanguinate the right lower extremity and the tourniquet was inflated to 250 mmHg. A lateral portal arthrotomy was established. Blunt trocar and cannula were introduced into the suprapatellar pouch. Camera, inflow, and outflow were assembled. No significant synovitis was noted. The patellofemoral joint was then visualized. 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 Grade 2 chondromalacia was noted along the trochlea. The patella appeared to track centrally. I then extended down the lateral and medial gutters. No loose bodies were identified. I then entered the medial compartment. A medial portal arthrotomy was established. Blunt probe was inserted. The meniscus was extensively probed. No tearing or instability was noted. Diffuse grade 2 chondromalacia was noted within the medial compartment. I then entered the notch. Both the ACL and PCL were visualized and probed and found to be intact. I then entered the lateral compartment. Diffuse grade 3 chondromalacia was noted along the lateral tibial plateau. The meniscus was probed. She was found to have a degenerative tear along the posterior horn of the lateral meniscus. Using a combination of biters and shaver, this was resected back to a stable remnant. It was again probed and found to be intact. Grade 2 degenerative changes were noted along the lateral femoral condyle. I then re-entered the patellofemoral joint. Chondroplasty of the patella was performed. A portion of the fat pad was excised as it appeared to be causing some impingement. Instruments were then removed from the knee. The portal sites were closed with 3-0 nylon. 1% Lidocaine was injected along the portal tracts. Xeroform gauze was placed over the wounds and a bulky dressing was applied. She was awakened from her anesthetic and transferred back to the operating room cart. She was brought to recovery room in stable condition. All needle and sponge counts were correct. BARRETT / MICHAEL /[id number]
== END 2019-01-21 16:20 | disposition home or self-care (01) ==
LOC: MW.SDS 10:17
PROVIDERS: ATTEND Orthopaedic Surgery
DX: M23.351 Other meniscus derangements, posterior horn of lateral meniscus, right knee (principal); M17.0 Bilateral primary osteoarthritis of knee; M22.41 Chondromalacia patellae, right knee; E03.9 Hypothyroidism, unspecified; J45.909 Unspecified asthma, uncomplicated; F17.210 Nicotine dependence, cigarettes, uncomplicated; F41.9 Anxiety disorder, unspecified; Z88.1 Allergy status to other antibiotic agents; Z91.040 Latex allergy status; Z91.048 Other nonmedicinal substance allergy status; Z79.899 Other long term (current) drug therapy
CPT/HCPCS: J0131; J0690; J1885; J2001; J2250; J2405; J2704; J3010; J7120